=== PATIENT | male | born 1955 | race Hispanic/Latino ===

== ENCOUNTER → 2018-06-12 | Outpatient (CLI) | payer OTHER ==
--- NOTE | 2018-06-12 13:00 | Diagnostic Imaging Report ---
EXAM: US TESTICULAR DOPPLER LTD DATE: 06/12/2018 9:47 AM INDICATION: Right testicular pain COMPARISON: None FINDINGS: Grayscale and color flow Doppler ultrasound of the scrotal contents was performed. Spectral waveform analysis was utilized to evaluate testicular blood flow. Right testicle: 4.7 x 3.1 x 2.6 cm. Slight heterogeneous echotexture. No discrete mass. Venous blood flow is detected. No arterial blood flow is detected. There is a small amount of simple fluid surrounding the testicle. There is a larger complex septated collection surrounding the right testicle. No varicocele. Right epididymis: Epididymal head measures 1.1 x 0.8 x 0.8 cm. There is an irregular echogenic area contiguous with the epididymis measuring 1.4 x 1.0 x 1.0 cm. No hyperemia of the epididymis. Left testicle: 3.8 x 1.2 x 2.2 cm. Homogeneous echotexture. No discrete mass. Arterial and venous blood flow is documented. No hydrocele or varicocele. The testicle appears displaced, likely by mass effect from the complex area surrounding the right testicle. Left epididymis: Epididymal head measures 0.8 x 0.6 x 1.0 cm. No hyperemia. Scrotal sac: No focal thickening of the scrotal sac. IMPRESSION: 1. The right testicle is slightly heterogeneous. There is absence of arterial blood flow in the right testicle. Venous flow is identified. 2. There is a large complex and septated collection surrounding the right testicle, likely complex hydrocele, possible hematoma or infection. 3. 1.4 cm echogenic area contiguous with the right epididymis, possibly reflecting previous epididymitis or hematoma. No hyperemia. 4. Normal-appearing arterial and venous blood flow to the left testicle. Signed by: Dr. Donato Granado M.D. on 06/12/2018 12:57 PM
== END ==
LOC: US 09:33
PROVIDERS: ATTEND Urology
DX: N44.00 Torsion of testis, unspecified (principal)
CPT/HCPCS: 76870; 93976